=== PATIENT | male | born 1990 | race African-American/Black ===

== ENCOUNTER 2018-02-08 08:19 | Emergency (ER) | payer OTHER ==
[~2018-02-08] VITALS: Ht 170.2 cm; Wt 63.5 kg
[~2018-02-08 08:19] MED LIST: CLARITIN-D 12 H1 TA1 PO; IBUPROFEN 800800 M1 PO
[2018-02-08 09:44] LABS: ABSOLUTE NEUTROPHILS 2.2 thou/uL (1.4-8.2); BASOPHILS 0.7 % (0.0-2.0); EOSINOPHILS 0.9 % (0.0-3.0); HEMATOCRIT 47.6 % (42.0-52.0); HEMOGLOBIN 16.5 gm/dL (14.0-18.0); LYMPHOCYTES 21.9 % (24.0-44.0); MCH 29.8 pg (26.0-34.0); MCHC 34.6 g/dL (28.0-37.0); MCV 86.1 fL (80.0-100.0); PLATELET COUNT 184 thou/uL (150-400); POLYS 64.5 % (36.0-66.0); RBC 5.52 mil/uL (4.50-6.00); RDW 14.4 % (10.5-14.5); WBC 3.4 thou/uL (4.0-11.0)
[2018-02-08 09:52] LABS: CALCIUM 8.6 mg/dL (8.5-10.1)
[2018-02-08 09:57] LABS: ALBUMIN 3.7 g/dL (3.4-5.0); TOTAL BILIRUBIN 0.4 mg/dL (<0.1-1.0); TOTAL PROTEIN 7.2 g/dL (6.4-8.2)
[2018-02-08] MEDS ORDERED: BENTYL 20 MG TA20 M1 PO (11:48)
[2018-02-08] MEDS ORDERED: NORCO 5-325 TA1 EACH PO (11:48)
[2018-02-08] MEDS ORDERED: ZOFRAN ODT4 MG PO (11:48)
[2018-02-08 12:01] VITALS: BP 107/57
== END 2018-02-08 12:12 | disposition home or self-care (01) ==
LOC: ER 08:19
PROVIDERS: Emergency Medicine
DX: A08.4 Viral intestinal infection, unspecified (principal); Z87.891 Personal history of nicotine dependence